=== PATIENT | female | born 1995 | race Caucasian/White ===

== ENCOUNTER 2019-09-05 10:25 | Emergency (ER) | payer OTHER ==
[~2019-09-05] VITALS: Ht 165.1 cm; Wt 108.2 kg
[2019-09-05] MEDS ORDERED: FAMO20TA PO (10:32)
[2019-09-05] MEDS ORDERED: LEXA1TAB PO (10:32)
--- NOTE | 2019-09-05 12:09 | REP ---
Thoracic spine series: Three views. History: Vertebral point tenderness after a fall. Findings: Thoracic vertebral body heights are preserved alignment is normal. There is minimal discogenic spurring in the mid thoracic spine. Pedicles and posterior elements are intact. No paravertebral soft-tissue mass or swelling is seen. No bony destructive lesion. Impression: Minimal discogenic spurring. Otherwise unremarkable radiographs of the thoracic spine. No traumatic abnormality. Electronically Signed by Martir Pardo MD 09/05/2019 12:00 P
--- NOTE | 2019-09-05 12:10 | REP ---
Lumbar spine series: Five views. History: Vertebral point tenderness after a fall. Findings: Lumbar vertebral body heights are preserved. Alignment is normal. Disc spaces are maintained. An IUD is noted projecting in the central pelvis. There is no evidence of spondylolysis or spondylolisthesis. No fracture or collapse is seen. Bowel gas pattern is normal. Psoas margins are symmetric. Sacrum and SI joints are unremarkable. Impression: Normal radiographs of the lumbar spine. Electronically Signed by Martir Pardo MD 09/05/2019 12:01 P
[2019-09-05] MEDS ORDERED: TYLETAB14 PO (12:44)
[2019-09-05 12:52] VITALS: BP 143/81
== END 2019-09-05 13:04 | disposition home or self-care (01) ==
LOC: M ED 10:25
DX: S30.0XXA Contusion of lower back and pelvis, initial encounter (principal); W01.0XXA Fall on same level from slipping, tripping and stumbling without subsequent striking against object, initial encounter; Y92.019 Unspecified place in single-family (private) house as the place of occurrence of the external cause; Z88.8 Allergy status to other drugs, medicaments and biological substances